=== PATIENT | male | born 1960 | race Asian ===

== ENCOUNTER 2024-07-11 16:14 | Inpatient (IN) | payer OTHER ==
[~2024-07-11] VITALS: Ht 167.6 cm; Wt 49.0 kg
[2024-07-11 16:36] LABS: GLUCOMETER DEV NAME(LOC) ERT.6; GLUCOSE,POINT OF CARE 113 MG/DL (70-110)
[2024-07-11] MEDS: SODIUM CHLORIDE 0.9% 800 ML IV ONE (17:05)
[2024-07-11] MEDS: SODIUM CHLORIDE 0.9% 1,000 ML IV ONE (17:05)
[2024-07-11] MEDS: ACETAMINOPHEN 1000 MG/ISO-OSM 100 ML IV ONE (17:06)
[2024-07-11] MEDS: PIPERACILLIN/TAZO 3.375 GM/D5W 50 ML IV ONE (17:07)
[2024-07-11] MEDS: VANCOMYCIN 1.25 GM/WATER(PEG) 250 ML IV ONE (17:07)
[2024-07-11 17:14] LABS: BASOPHILS % (AUTO) 0.2 % (0.0-2.0); EOSINOPHILS % (AUTO) 0 % (1.0-6.0); HEMOGLOBIN 8.2 g/dL (13.5-17.5); LYMPHOCYTES # (AUTO) 1.6 K/uL (1.0-4.8); LYMPHOCYTES % (AUTO) 8.7 % (22.0-44.0); MEAN CORPUSCULAR HEMOGLOBIN 16.3 pg (26.0-34.0); MEAN CORPUSCULAR HGB CONC 30.2 G/dL (31.0-37.0); MEAN CORPUSCULAR VOLUME 54 fL (80-100); MONOCYTES # (AUTO) 1.8 K/uL (0.1-1.0); MONOCYTES % (AUTO) 9.5 % (2.0-9.0); NEUTROPHILS # (AUTO) 15.5 K/uL (1.8-7.7); NEUTROPHILS % (AUTO) 81.6 % (40.0-70.0); PLATELET COUNT (AUTO) 615 K/uL (150-450); RED BLOOD CELL COUNT(AUTO) 5.02 MIL/uL (4.50-5.90); RED CELL DISTRIBUTION WIDTH 15.4 % (11.5-14.5); WHITE BLOOD COUNT (AUTO) 18.9 K/uL (4.5-11.0)
[2024-07-11 17:18] LABS: ANION GAP 13 mmol/L (8-16); CALCIUM, TOTAL 8.4 mg/dL (8.8-10.5); CARBON DIOXIDE 23 mmol/L (22-29); CHLORIDE 93 mmol/L (98-107); GLOMERULAR FILTR. RATE CALC > 60 mL/min (>60); GLUCOSE,RANDOM 103 mg/dL (70-110); SODIUM SERUM 129 mmol/L (136-145); UREA NITROGEN, BLOOD 23 mg/dL (7-18)
[2024-07-11 17:26] LABS: LACTIC ACID 1.5 mmol/L (0.4-2.0)
[2024-07-11 17:30] LABS: INR 1.2 (0.9-1.1); PROTHROMBIN TIME 12.1 SEC (9.4-11.6)
[2024-07-11 17:35] LABS: TROPONIN I-HIGH SENSITIVITY 4 ng/L (<76)
[2024-07-11 17:36] LABS: ALCOHOL, BLOOD (SERUM) < 3 mg/dL (0-10)
[2024-07-11 17:43] LABS: ALANINE AMINOTRANSFERASE 303 U/L (12-78); ALBUMIN 1.9 g/dL (3.4-5.0); ALKALINE PHOSPHATASE 296 U/L (46-116); ASPARTATE AMINOTRANSFERASE 315 U/L (15-37); BILIRUBIN,TOTAL 1.2 mg/dL (0.1-1.0); CREATINE KINASE, TOTAL ONLY 147 U/L (39-308); TOTAL PROTEIN, SERUM 9.1 g/dL (6.4-8.2)
[2024-07-11 17:43] LABS: COVID AG,FIA SOURCE NASAL SWAB
[2024-07-11 17:44] LABS: RBC MORPHOLOGY COMMENT ABNORMAL RBC MORPH
[2024-07-11 18:08] LABS: SARS-COV2 (COVID) ANTIGEN,FIA Negative (Negative)
[2024-07-11 18:12] LABS: INFLUENZA TYPE A NEGATIVE FOR TYPE A (NEGATIVE); INFLUENZA TYPE B NEGATIVE FOR TYPE B (NEGATIVE)
[2024-07-11 18:26] LABS: B-TYPE NATRIURETIC PEPTIDE 116 pg/mL (0-100)
[2024-07-11 19:34] LABS: TROPONIN I-HIGH SENSITIVITY Less Than 4 ng/L (<76)
[2024-07-11 19:45] LABS: APPEARANCE,URINE CLEAR (CLEAR); BILIRUBIN,URINE NEGATIVE (NEGATIVE); COLOR,URINE YELLOW (YELLOW); GLUCOSE, URINE (UA) NEGATIVE (NEGATIVE); KETONES,URINE NEGATIVE (NEGATIVE); LEUKOCYTE ESTERASE ,URINE NEGATIVE (NEGATIVE); NITRATE,URINE NEGATIVE (NEGATIVE); OCCULT BLOOD,URINE MODERATE (NEGATIVE); PH,URINE 5.5 (5.0-8.0); PH,URINE DRUG SCREEN 5.5 (5.0-8.0); PROTEIN,URINE TRACE mg/dL (NEGATIVE); SPECIFIC GRAVITIY, URINE 1.024 (1.003-1.030)
[2024-07-11 19:53] LABS: ALCOHOL, URINE DRUG SCREEN NEGATIVE (NEGATIVE); AMPHET/METH SCREEN,URINE NEGATIVE (NEGATIVE); BARBITURATE SCREEN, URINE NEGATIVE (NEGATIVE); BENZODIAZEPINES SCREEN,URINE NEGATIVE (NEGATIVE); CANNABINOID SCREEN,URINE NEGATIVE (NEGATIVE); COCAINE SCREEN,URINE NEGATIVE (NEGATIVE); METHADONE SCREEN, URINE NEGATIVE (NEGATIVE); OPIATE SCREEN,URINE NEGATIVE (NEGATIVE); PHENCYCLIDINE SCREEN,URINE NEGATIVE (NEGATIVE)
[2024-07-11 20:22] LABS: BACTERIA,URINE None Seen /HPF (None Seen); WBC,URINE None Seen /HPF (0-5)
[2024-07-11] MEDS ORDERED: BISACODYL 10 MG RECTAL RECTAL SUPPOSITORY PR PRN (22:30)
[2024-07-11] MEDS ORDERED: MAGNESIUM HYDROXIDE SUSPENSION 30 ML UDCUP PO PRN (22:30)
[2024-07-11] MEDS ORDERED: ZOLPIDEM TARTRATE 5 MG TABLET PO PRN (22:30)
[2024-07-11] MEDS ORDERED: ONDANSETRON HCL 4 MG/2 ML VIAL IVP PRN (22:30)
[2024-07-11] MEDS: *CLINICAL-LEVOFLOXACIN IVPB DOSING CLINICAL ONE (22:36)
[2024-07-12] MEDS: LEVOFLOXACIN 750 MG/D5% WATER 150 ML IV SCH (00:12)
[2024-07-12] MEDS: HEPARIN SODIUM,PORCINE 5,000 UNITS/ML VIAL SQ SCH (00:12)
[2024-07-12 02:45] VITALS: BP 124/86; PULSE 99; RESP 18; TEMP 98.3; O2SAT 95
[2024-07-12 04:00] VITALS: BP 123/70; PULSE 88; RESP 18; TEMP 101; O2SAT 97
[2024-07-12] MEDS: ACETAMINOPHEN 325 MG TABLET PO PRN (05:51)
[2024-07-12 06:55] LABS: ANION GAP 13 mmol/L (8-16); BASOPHILS % (AUTO) 0.2 % (0.0-2.0); CALCIUM, TOTAL 7.6 mg/dL (8.8-10.5); CARBON DIOXIDE 20 mmol/L (22-29); CHLORIDE 99 mmol/L (98-107); CREATININE 0.82 mg/dL (0.60-1.30); EOSINOPHILS % (AUTO) 0 % (1.0-6.0); GLOMERULAR FILTR. RATE CALC > 60 mL/min (>60); GLUCOSE,RANDOM 78 mg/dL (70-110); HEMATOCRIT 24.9 % (41-53); HEMOGLOBIN 7.3 g/dL (13.5-17.5); LYMPHOCYTES # (AUTO) 1.5 K/uL (1.0-4.8); LYMPHOCYTES % (AUTO) 8.3 % (22.0-44.0); MEAN CORPUSCULAR HEMOGLOBIN 15.9 pg (26.0-34.0); MEAN CORPUSCULAR HGB CONC 29.4 G/dL (31.0-37.0); MEAN CORPUSCULAR VOLUME 54 fL (80-100); MONOCYTES # (AUTO) 1.8 K/uL (0.1-1.0); MONOCYTES % (AUTO) 9.5 % (2.0-9.0); NEUTROPHILS # (AUTO) 15.2 K/uL (1.8-7.7); PLATELET COUNT (AUTO) 545 K/uL (150-450); POTASSIUM 3.9 mmol/L (3.5-5.1); RED BLOOD CELL COUNT(AUTO) 4.59 MIL/uL (4.50-5.90); SODIUM SERUM 132 mmol/L (136-145); UREA NITROGEN, BLOOD 15 mg/dL (7-18); WHITE BLOOD COUNT (AUTO) 18.5 K/uL (4.5-11.0)
[2024-07-12 08:00] VITALS: BP 124/77; PULSE 72; RESP 18; TEMP 97.7; O2SAT 99
[2024-07-12] MEDS: PANTOPRAZOLE SODIUM 40 MG DR TABLET PO SCH (08:23)
[2024-07-12] MEDS: DOCUSATE SODIUM 100 MG CAPSULE PO SCH (08:23)
[2024-07-12 12:00] VITALS: BP 118/61; PULSE 73; RESP 18; TEMP 97.3; O2SAT 98
[2024-07-12 16:00] VITALS: BP 141/79; PULSE 85; RESP 18; TEMP 100.2; O2SAT 98
[2024-07-12 21:17] VITALS: BP 137/72; PULSE 88; RESP 18; TEMP 98; O2SAT 96
[2024-07-12] MEDS ORDERED: SODIUM CHLORIDE 0.9% 250 ML IV ONE (23:38)
[2024-07-13 00:33] VITALS: BP 125/70; PULSE 90; RESP 18; TEMP 99.7; O2SAT 95
[2024-07-13 04:00] VITALS: BP 110/62; PULSE 84; RESP 18; TEMP 98.7; O2SAT 98
[2024-07-13 07:32] LABS: BASOPHILS % (AUTO) 0.2 % (0.0-2.0); EOSINOPHILS % (AUTO) 0 % (1.0-6.0); HEMATOCRIT 25.5 % (41-53); HEMOGLOBIN 7.7 g/dL (13.5-17.5); LYMPHOCYTES # (AUTO) 2.8 K/uL (1.0-4.8); LYMPHOCYTES % (AUTO) 13.3 % (22.0-44.0); MEAN CORPUSCULAR HEMOGLOBIN 16.2 pg (26.0-34.0); MEAN CORPUSCULAR HGB CONC 30.3 G/dL (31.0-37.0); MEAN CORPUSCULAR VOLUME 54 fL (80-100); MONOCYTES # (AUTO) 1.5 K/uL (0.1-1.0); NEUTROPHILS # (AUTO) 16.5 K/uL (1.8-7.7); NEUTROPHILS % (AUTO) 79.5 % (40.0-70.0); PLATELET COUNT (AUTO) 585 K/uL (150-450); RED BLOOD CELL COUNT(AUTO) 4.76 MIL/uL (4.50-5.90); RED CELL DISTRIBUTION WIDTH 15.8 % (11.5-14.5); WHITE BLOOD COUNT (AUTO) 20.8 K/uL (4.5-11.0)
[2024-07-13 07:43] LABS: ALANINE AMINOTRANSFERASE 154 U/L (12-78); ALBUMIN 1.4 g/dL (3.4-5.0); ALKALINE PHOSPHATASE 213 U/L (46-116); ANION GAP 14 mmol/L (8-16); ASPARTATE AMINOTRANSFERASE 104 U/L (15-37); BILIRUBIN,TOTAL 0.8 mg/dL (0.1-1.0); CALCIUM, TOTAL 7.9 mg/dL (8.8-10.5); CARBON DIOXIDE 20 mmol/L (22-29); CHLORIDE 95 mmol/L (98-107); CREATININE 0.84 mg/dL (0.60-1.30); GLOMERULAR FILTR. RATE CALC > 60 mL/min (>60); GLUCOSE,RANDOM 73 mg/dL (70-110); POTASSIUM 3.9 mmol/L (3.5-5.1); SODIUM SERUM 129 mmol/L (136-145); TOTAL PROTEIN, SERUM 7.6 g/dL (6.4-8.2); UREA NITROGEN, BLOOD 12 mg/dL (7-18)
[2024-07-13 07:53] LABS: RBC MORPHOLOGY COMMENT ABNORMAL RBC MORPH
[2024-07-13 08:00] VITALS: BP 112/64; PULSE 84; RESP 18; TEMP 97.8; O2SAT 97
[2024-07-13] MEDS ORDERED: GADOTERATE MEGLUMINE 10 MMOL/20 ML VIAL IVP ONE (11:24)
[2024-07-13 12:00] VITALS: BP 103/65; PULSE 81; RESP 17; TEMP 98.4; O2SAT 96
[2024-07-13 16:00] VITALS: BP 114/68; PULSE 84; RESP 18; TEMP 98.5; O2SAT 96
[2024-07-13] MEDS ORDERED: PIPERACILLIN/TAZO 3.375 GM/D5W 50 ML IV SCH (16:00)
[2024-07-13] MEDS: MetroNIDAZOLE 500 MG TABLET PO SCH (17:11)
[2024-07-13 21:12] VITALS: BP 108/62; PULSE 82; RESP 18; TEMP 99; O2SAT 97
[2024-07-14 00:30] VITALS: BP 126/73; PULSE 85; RESP 18; TEMP 98.1; O2SAT 95
[2024-07-14 05:46] VITALS: BP 119/72; PULSE 79; RESP 18; TEMP 98.2; O2SAT 95
[2024-07-14 07:40] LABS: BASOPHILS % (AUTO) 0.3 % (0.0-2.0); EOSINOPHILS % (AUTO) 0 % (1.0-6.0); HEMATOCRIT 25.2 % (41-53); HEMOGLOBIN 7.6 g/dL (13.5-17.5); LYMPHOCYTES # (AUTO) 2.7 K/uL (1.0-4.8); MEAN CORPUSCULAR HEMOGLOBIN 16.2 pg (26.0-34.0); MEAN CORPUSCULAR HGB CONC 30.2 G/dL (31.0-37.0); MEAN CORPUSCULAR VOLUME 54 fL (80-100); MONOCYTES # (AUTO) 1.6 K/uL (0.1-1.0); MONOCYTES % (AUTO) 7.6 % (2.0-9.0); NEUTROPHILS # (AUTO) 16.3 K/uL (1.8-7.7); NEUTROPHILS % (AUTO) 79.1 % (40.0-70.0); PLATELET COUNT (AUTO) 575 K/uL (150-450); RED BLOOD CELL COUNT(AUTO) 4.69 MIL/uL (4.50-5.90); RED CELL DISTRIBUTION WIDTH 15.8 % (11.5-14.5); WHITE BLOOD COUNT (AUTO) 20.6 K/uL (4.5-11.0)
[2024-07-14 08:07] VITALS: BP 105/65; PULSE 77; RESP 18; TEMP 98.7; O2SAT 94
[2024-07-14 08:07] LABS: ANION GAP 8 mmol/L (8-16); CARBON DIOXIDE 25 mmol/L (22-29); CHLORIDE 97 mmol/L (98-107); CREATININE 0.88 mg/dL (0.60-1.30); GLUCOSE,RANDOM 98 mg/dL (70-110); POTASSIUM 3.7 mmol/L (3.5-5.1); SODIUM SERUM 130 mmol/L (136-145); UREA NITROGEN, BLOOD 10 mg/dL (7-18)
[2024-07-14 08:08] LABS: CALCIUM, TOTAL 7.9 mg/dL (8.8-10.5); GLOMERULAR FILTR. RATE CALC > 60 mL/min (>60)
[2024-07-14 08:38] LABS: RBC MORPHOLOGY COMMENT ABNORMAL RBC MORPH
[2024-07-14 15:57] VITALS: BP 110/66; PULSE 81; RESP 20; TEMP 99.1; O2SAT 98
[2024-07-14 19:49] VITALS: BP 108/61; PULSE 82; RESP 20; TEMP 98.9; O2SAT 96
[2024-07-15 04:04] VITALS: BP 103/61; PULSE 78; RESP 19; TEMP 98.7; O2SAT 96
[2024-07-15 09:38] VITALS: BP 102/63; PULSE 74; RESP 20; TEMP 97.6; O2SAT 99
[2024-07-15 15:40] VITALS: BP 109/63; PULSE 80; RESP 18; TEMP 98.1; O2SAT 96
[2024-07-15 20:46] VITALS: BP 116/64; PULSE 82; RESP 17; TEMP 97.6; O2SAT 97
[2024-07-16 05:14] VITALS: BP 105/63; PULSE 74; RESP 17; TEMP 98.3; O2SAT 96
[2024-07-16 08:28] LABS: BASOPHILS % (AUTO) 0.3 % (0.0-2.0); EOSINOPHILS % (AUTO) 0.1 % (1.0-6.0); HEMATOCRIT 26.6 % (41-53); HEMOGLOBIN 7.9 g/dL (13.5-17.5); LYMPHOCYTES # (AUTO) 2.4 K/uL (1.0-4.8); LYMPHOCYTES % (AUTO) 12.1 % (22.0-44.0); MEAN CORPUSCULAR HGB CONC 29.7 G/dL (31.0-37.0); MEAN CORPUSCULAR VOLUME 54 fL (80-100); MONOCYTES # (AUTO) 1.7 K/uL (0.1-1.0); MONOCYTES % (AUTO) 8.5 % (2.0-9.0); NEUTROPHILS # (AUTO) 15.8 K/uL (1.8-7.7); PLATELET COUNT (AUTO) 615 K/uL (150-450); RED BLOOD CELL COUNT(AUTO) 4.97 MIL/uL (4.50-5.90); RED CELL DISTRIBUTION WIDTH 15.7 % (11.5-14.5)
[2024-07-16 08:44] VITALS: BP 111/63; PULSE 77; RESP 20; TEMP 98; O2SAT 97
[2024-07-16 08:54] LABS: ALANINE AMINOTRANSFERASE 88 U/L (12-78); ALBUMIN 1.5 g/dL (3.4-5.0); ALKALINE PHOSPHATASE 205 U/L (46-116); ANION GAP 9 mmol/L (8-16); ASPARTATE AMINOTRANSFERASE 57 U/L (15-37); BILIRUBIN,TOTAL 0.6 mg/dL (0.1-1.0); CALCIUM, TOTAL 8.3 mg/dL (8.8-10.5); CARBON DIOXIDE 26 mmol/L (22-29); CHLORIDE 95 mmol/L (98-107); CREATININE 0.99 mg/dL (0.60-1.30); GLOMERULAR FILTR. RATE CALC > 60 mL/min (>60); GLUCOSE,RANDOM 107 mg/dL (70-110); POTASSIUM 3.5 mmol/L (3.5-5.1); SODIUM SERUM 129 mmol/L (136-145); TOTAL PROTEIN, SERUM 8.2 g/dL (6.4-8.2); UREA NITROGEN, BLOOD 9 mg/dL (7-18)
[2024-07-16 11:00] LABS: RBC MORPHOLOGY COMMENT ABNORMAL RBC MORPH
[2024-07-16] MEDS ORDERED: LIDOCAINE/PF 1% 30 ML VIAL ONE (11:58)
[2024-07-16] MEDS ORDERED: SODIUM BICARBONATE 50 MEQ/50 ML VIAL ONE (11:58)
[2024-07-16] MEDS ORDERED: DiphenhydrAMINE HCL 50 MG/ML VIAL ONE (12:00)
[2024-07-16 12:07] VITALS: BP 135/74; PULSE 81
[2024-07-16] MEDS: DiphenhydrAMINE HCL 50 MG/ML VIAL IVP ONE (12:17)
[2024-07-16 12:27] VITALS: BP 122/73; PULSE 81
[2024-07-16] MEDS: LIDOCAINE 1% 30 ML/SOD BICARB 8.4% 4 ML SQ ONE (12:34)
[2024-07-16] MEDS: MORPHINE SULFATE 2 MG/ML SYRINGE IVP PRN (13:50)
[2024-07-16 16:07] VITALS: BP 117/71; PULSE 84; RESP 20; TEMP 98.6; O2SAT 98
[2024-07-16 19:27] VITALS: BP 121/77; PULSE 100; RESP 19; TEMP 98.6; O2SAT 98
[2024-07-17 05:10] VITALS: BP 104/70; PULSE 85; RESP 18; TEMP 98.4; O2SAT 95
[2024-07-17 07:25] LABS: BASOPHILS % (AUTO) 0.1 % (0.0-2.0); EOSINOPHILS % (AUTO) 0 % (1.0-6.0); HEMATOCRIT 25.4 % (41-53); HEMOGLOBIN 7.6 g/dL (13.5-17.5); LYMPHOCYTES # (AUTO) 2.5 K/uL (1.0-4.8); LYMPHOCYTES % (AUTO) 11.5 % (22.0-44.0); MEAN CORPUSCULAR HGB CONC 29.9 G/dL (31.0-37.0); MEAN CORPUSCULAR VOLUME 54 fL (80-100); MONOCYTES # (AUTO) 0.5 K/uL (0.1-1.0); MONOCYTES % (AUTO) 2.4 % (2.0-9.0); NEUTROPHILS # (AUTO) 18.6 K/uL (1.8-7.7); PLATELET COUNT (AUTO) 516 K/uL (150-450); RED BLOOD CELL COUNT(AUTO) 4.74 MIL/uL (4.50-5.90); RED CELL DISTRIBUTION WIDTH 15.8 % (11.5-14.5); WHITE BLOOD COUNT (AUTO) 21.7 K/uL (4.5-11.0)
[2024-07-17 07:39] LABS: RBC MORPHOLOGY COMMENT ABNORMAL RBC MORPH
[2024-07-17 08:00] VITALS: BP 107/68; PULSE 81; RESP 19; TEMP 98.7; O2SAT 96
[2024-07-17] MEDS: HYDROCODONE/ACETAMINOPHEN 5-325 MG TABLET PO PRN (08:28)
[2024-07-17 16:51] VITALS: BP 106/70; PULSE 88; RESP 18; TEMP 98; O2SAT 96
[2024-07-17 19:34] VITALS: BP 108/67; PULSE 92; RESP 18; TEMP 98.7; O2SAT 96
[2024-07-18 03:53] VITALS: BP 102/65; PULSE 87; RESP 19; TEMP 98.5; O2SAT 95
[2024-07-18 07:46] LABS: BASOPHILS % (AUTO) 0.2 % (0.0-2.0); EOSINOPHILS % (AUTO) 0.1 % (1.0-6.0); HEMATOCRIT 25.1 % (41-53); HEMOGLOBIN 7.4 g/dL (13.5-17.5); LYMPHOCYTES # (AUTO) 2.4 K/uL (1.0-4.8); LYMPHOCYTES % (AUTO) 11.3 % (22.0-44.0); MEAN CORPUSCULAR HEMOGLOBIN 15.8 pg (26.0-34.0); MEAN CORPUSCULAR HGB CONC 29.5 G/dL (31.0-37.0); MEAN CORPUSCULAR VOLUME 54 fL (80-100); MONOCYTES % (AUTO) 4.7 % (2.0-9.0); NEUTROPHILS # (AUTO) 17.7 K/uL (1.8-7.7); NEUTROPHILS % (AUTO) 83.7 % (40.0-70.0); PLATELET COUNT (AUTO) 502 K/uL (150-450); RED BLOOD CELL COUNT(AUTO) 4.69 MIL/uL (4.50-5.90); WHITE BLOOD COUNT (AUTO) 21.1 K/uL (4.5-11.0)
[2024-07-18 08:07] VITALS: BP 102/69; PULSE 63; RESP 18; TEMP 98.2; O2SAT 96
[2024-07-18 15:35] VITALS: BP 117/69; PULSE 88; RESP 18; TEMP 99.2; O2SAT 94
[2024-07-18 19:21] VITALS: BP 114/84; PULSE 74; RESP 20; TEMP 99.4; O2SAT 97
[2024-07-19 04:46] VITALS: BP 116/74; PULSE 71; RESP 18; TEMP 97.7; O2SAT 99
[2024-07-19 08:17] VITALS: BP 111/68; PULSE 70; RESP 19; TEMP 97.8; O2SAT 96
[2024-07-19 08:25] LABS: BASOPHILS % (AUTO) 0.3 % (0.0-2.0); EOSINOPHILS % (AUTO) 0.3 % (1.0-6.0); HEMOGLOBIN 8.4 g/dL (13.5-17.5); LYMPHOCYTES # (AUTO) 2.3 K/uL (1.0-4.8); LYMPHOCYTES % (AUTO) 11.5 % (22.0-44.0); MEAN CORPUSCULAR HEMOGLOBIN 16.1 pg (26.0-34.0); MEAN CORPUSCULAR HGB CONC 29.9 G/dL (31.0-37.0); MEAN CORPUSCULAR VOLUME 54 fL (80-100); MONOCYTES # (AUTO) 1.1 K/uL (0.1-1.0); MONOCYTES % (AUTO) 5.8 % (2.0-9.0); NEUTROPHILS % (AUTO) 82.1 % (40.0-70.0); PLATELET COUNT (AUTO) 569 K/uL (150-450); RED CELL DISTRIBUTION WIDTH 16.8 % (11.5-14.5); WHITE BLOOD COUNT (AUTO) 19.5 K/uL (4.5-11.0)
[2024-07-19 15:57] VITALS: BP 103/65; PULSE 79; RESP 20; TEMP 98; O2SAT 98
[2024-07-19 20:06] VITALS: BP 124/73; PULSE 85; RESP 20; TEMP 98.3; O2SAT 94
[2024-07-20 04:46] VITALS: BP 118/76; PULSE 82; RESP 20; TEMP 98; O2SAT 95
[2024-07-20 09:00] VITALS: BP 114/74; PULSE 80; RESP 19; TEMP 97.8; O2SAT 95
[2024-07-20 10:24] LABS: BASOPHILS % (AUTO) 0.6 % (0.0-2.0); EOSINOPHILS % (AUTO) 0.3 % (1.0-6.0); HEMATOCRIT 29.2 % (41-53); HEMOGLOBIN 8.8 g/dL (13.5-17.5); LYMPHOCYTES # (AUTO) 2.4 K/uL (1.0-4.8); LYMPHOCYTES % (AUTO) 12.1 % (22.0-44.0); MEAN CORPUSCULAR VOLUME 54 fL (80-100); MONOCYTES # (AUTO) 1.4 K/uL (0.1-1.0); MONOCYTES % (AUTO) 7.1 % (2.0-9.0); NEUTROPHILS % (AUTO) 79.9 % (40.0-70.0); PLATELET COUNT (AUTO) 665 K/uL (150-450); RED BLOOD CELL COUNT(AUTO) 5.47 MIL/uL (4.50-5.90); RED CELL DISTRIBUTION WIDTH 16.4 % (11.5-14.5)
[2024-07-20 10:30] LABS: RBC MORPHOLOGY COMMENT ABNORMAL RBC MORPH
[2024-07-20 10:40] LABS: ALANINE AMINOTRANSFERASE 30 U/L (12-78); ALBUMIN 1.5 g/dL (3.4-5.0); ALKALINE PHOSPHATASE 136 U/L (46-116); ANION GAP 8 mmol/L (8-16); ASPARTATE AMINOTRANSFERASE 42 U/L (15-37); BILIRUBIN,TOTAL 0.5 mg/dL (0.1-1.0); CALCIUM, TOTAL 8.3 mg/dL (8.8-10.5); CARBON DIOXIDE 27 mmol/L (22-29); CHLORIDE 93 mmol/L (98-107); CREATININE 0.78 mg/dL (0.60-1.30); GLOMERULAR FILTR. RATE CALC > 60 mL/min (>60); GLUCOSE,RANDOM 96 mg/dL (70-110); POTASSIUM 4.2 mmol/L (3.5-5.1); SODIUM SERUM 128 mmol/L (136-145); UREA NITROGEN, BLOOD 13 mg/dL (7-18)
[2024-07-20 14:51] VITALS: BP 107/77; PULSE 86; RESP 18; TEMP 97.7; O2SAT 96
[2024-07-20 19:25] VITALS: BP 127/89; PULSE 84; RESP 18; TEMP 97.8; O2SAT 97
[2024-07-21 03:17] VITALS: BP 122/77; PULSE 82; RESP 18; TEMP 97.8; O2SAT 97
[2024-07-21 07:49] LABS: BASOPHILS % (AUTO) 1.4 % (0.0-2.0); EOSINOPHILS % (AUTO) 0.3 % (1.0-6.0); HEMATOCRIT 28.7 % (41-53); HEMOGLOBIN 8.6 g/dL (13.5-17.5); LYMPHOCYTES # (AUTO) 2.5 K/uL (1.0-4.8); LYMPHOCYTES % (AUTO) 11.2 % (22.0-44.0); MEAN CORPUSCULAR HGB CONC 29.8 G/dL (31.0-37.0); MEAN CORPUSCULAR VOLUME 54 fL (80-100); MONOCYTES # (AUTO) 1.3 K/uL (0.1-1.0); MONOCYTES % (AUTO) 5.8 % (2.0-9.0); NEUTROPHILS # (AUTO) 17.9 K/uL (1.8-7.7); NEUTROPHILS % (AUTO) 81.3 % (40.0-70.0); PLATELET COUNT (AUTO) 659 K/uL (150-450); RED BLOOD CELL COUNT(AUTO) 5.37 MIL/uL (4.50-5.90); RED CELL DISTRIBUTION WIDTH 16.6 % (11.5-14.5)
[2024-07-21 08:05] LABS: ANION GAP 8 mmol/L (8-16); CALCIUM, TOTAL 8.4 mg/dL (8.8-10.5); CARBON DIOXIDE 28 mmol/L (22-29); CHLORIDE 93 mmol/L (98-107); CREATININE 0.88 mg/dL (0.60-1.30); GLOMERULAR FILTR. RATE CALC > 60 mL/min (>60); GLUCOSE,RANDOM 100 mg/dL (70-110); POTASSIUM 4.2 mmol/L (3.5-5.1); SODIUM SERUM 129 mmol/L (136-145); UREA NITROGEN, BLOOD 15 mg/dL (7-18)
[2024-07-21 08:39] LABS: RBC MORPHOLOGY COMMENT ABNORMAL RBC MORPH
[2024-07-21 09:23] VITALS: BP 126/79; PULSE 84; RESP 18; TEMP 97.5; O2SAT 97
[2024-07-21 15:09] VITALS: BP 114/78; PULSE 90; RESP 18; TEMP 97.7; O2SAT 97
[2024-07-21 19:18] VITALS: BP 139/87; PULSE 86; RESP 18; TEMP 97.7; O2SAT 96
[2024-07-21 19:22] VITALS: BP 119/61; PULSE 64; RESP 18; TEMP 98.4; O2SAT 96
[2024-07-22 03:59] VITALS: BP 111/67; PULSE 80; RESP 18; TEMP 98.2; O2SAT 96
[2024-07-22 07:09] LABS: BASOPHILS % (AUTO) 0.2 % (0.0-2.0); EOSINOPHILS % (AUTO) 0.4 % (1.0-6.0); HEMATOCRIT 27.8 % (41-53); HEMOGLOBIN 8.3 g/dL (13.5-17.5); LYMPHOCYTES # (AUTO) 2.5 K/uL (1.0-4.8); MEAN CORPUSCULAR VOLUME 53 fL (80-100); MONOCYTES # (AUTO) 1.6 K/uL (0.1-1.0); MONOCYTES % (AUTO) 7.8 % (2.0-9.0); NEUTROPHILS # (AUTO) 16.4 K/uL (1.8-7.7); NEUTROPHILS % (AUTO) 79.6 % (40.0-70.0); PLATELET COUNT (AUTO) 628 K/uL (150-450); RED CELL DISTRIBUTION WIDTH 16.6 % (11.5-14.5); WHITE BLOOD COUNT (AUTO) 20.6 K/uL (4.5-11.0)
[2024-07-22 07:16] LABS: ANION GAP 6 mmol/L (8-16); CALCIUM, TOTAL 8.3 mg/dL (8.8-10.5); CARBON DIOXIDE 27 mmol/L (22-29); CHLORIDE 97 mmol/L (98-107); CREATININE 0.85 mg/dL (0.60-1.30); GLOMERULAR FILTR. RATE CALC > 60 mL/min (>60); GLUCOSE,RANDOM 95 mg/dL (70-110); POTASSIUM 4.5 mmol/L (3.5-5.1); SODIUM SERUM 130 mmol/L (136-145); UREA NITROGEN, BLOOD 16 mg/dL (7-18)
[2024-07-22 08:31] VITALS: BP 118/67; PULSE 82; RESP 19; TEMP 97.8; O2SAT 96
[2024-07-22 08:38] LABS: RBC MORPHOLOGY COMMENT ABNORMAL RBC MORPH
[2024-07-22 16:05] VITALS: BP 130/79; PULSE 97; RESP 18; TEMP 97.7; O2SAT 96
[2024-07-22 19:48] VITALS: BP 113/71; PULSE 87; RESP 18; TEMP 98.2; O2SAT 96
[2024-07-23 04:57] VITALS: BP 117/74; PULSE 81; RESP 18; TEMP 98.3; O2SAT 96
[2024-07-23 06:32] LABS: BASOPHILS % (AUTO) 0.5 % (0.0-2.0); EOSINOPHILS % (AUTO) 0.4 % (1.0-6.0); HEMATOCRIT 27.7 % (41-53); HEMOGLOBIN 8.3 g/dL (13.5-17.5); LYMPHOCYTES # (AUTO) 2.6 K/uL (1.0-4.8); LYMPHOCYTES % (AUTO) 12.9 % (22.0-44.0); MEAN CORPUSCULAR HEMOGLOBIN 16.1 pg (26.0-34.0); MEAN CORPUSCULAR VOLUME 54 fL (80-100); MONOCYTES # (AUTO) 1.3 K/uL (0.1-1.0); MONOCYTES % (AUTO) 6.3 % (2.0-9.0); NEUTROPHILS # (AUTO) 16.4 K/uL (1.8-7.7); NEUTROPHILS % (AUTO) 79.9 % (40.0-70.0); PLATELET COUNT (AUTO) 619 K/uL (150-450); RED BLOOD CELL COUNT(AUTO) 5.15 MIL/uL (4.50-5.90); RED CELL DISTRIBUTION WIDTH 17.1 % (11.5-14.5); WHITE BLOOD COUNT (AUTO) 20.5 K/uL (4.5-11.0)
[2024-07-23 06:52] LABS: ANION GAP 6 mmol/L (8-16); CALCIUM, TOTAL 8.3 mg/dL (8.8-10.5); CARBON DIOXIDE 28 mmol/L (22-29); CHLORIDE 96 mmol/L (98-107); CREATININE 0.74 mg/dL (0.60-1.30); GLOMERULAR FILTR. RATE CALC > 60 mL/min (>60); GLUCOSE,RANDOM 90 mg/dL (70-110); POTASSIUM 4.3 mmol/L (3.5-5.1); SODIUM SERUM 130 mmol/L (136-145); UREA NITROGEN, BLOOD 13 mg/dL (7-18)
[2024-07-23 08:13] VITALS: BP 112/77; PULSE 84; RESP 18; TEMP 97.9; O2SAT 95
[2024-07-23 08:29] LABS: RBC MORPHOLOGY COMMENT ABNORMAL RBC MORPH
[2024-07-23 16:10] VITALS: BP 122/68; PULSE 78; RESP 18; TEMP 98; O2SAT 96
[2024-07-23] MEDS: AMPICILLIN SODIUM/SULBACTAM NA 3 GM in SODIUM CHLORIDE 0.9% 100 ML IV SCH (16:23)
[2024-07-23 19:15] VITALS: BP 113/65; PULSE 85; RESP 18; TEMP 98.4; O2SAT 96
[2024-07-24 04:31] VITALS: BP 121/74; PULSE 77; RESP 18; TEMP 98.1; O2SAT 97
[2024-07-24 07:15] LABS: BASOPHILS % (AUTO) 0.4 % (0.0-2.0); EOSINOPHILS % (AUTO) 0.4 % (1.0-6.0); HEMATOCRIT 28.9 % (41-53); HEMOGLOBIN 8.7 g/dL (13.5-17.5); LYMPHOCYTES # (AUTO) 3.3 K/uL (1.0-4.8); LYMPHOCYTES % (AUTO) 19.3 % (22.0-44.0); MEAN CORPUSCULAR HEMOGLOBIN 16.2 pg (26.0-34.0); MEAN CORPUSCULAR VOLUME 54 fL (80-100); MONOCYTES # (AUTO) 1.2 K/uL (0.1-1.0); MONOCYTES % (AUTO) 7.1 % (2.0-9.0); NEUTROPHILS # (AUTO) 12.3 K/uL (1.8-7.7); NEUTROPHILS % (AUTO) 72.8 % (40.0-70.0); PLATELET COUNT (AUTO) 681 K/uL (150-450); RED BLOOD CELL COUNT(AUTO) 5.36 MIL/uL (4.50-5.90); RED CELL DISTRIBUTION WIDTH 17.1 % (11.5-14.5); WHITE BLOOD COUNT (AUTO) 16.9 K/uL (4.5-11.0)
[2024-07-24 07:28] LABS: RBC MORPHOLOGY COMMENT ABNORMAL RBC MORPH
[2024-07-24 08:06] VITALS: BP 117/70; PULSE 79; RESP 20; TEMP 97.9; O2SAT 97
[2024-07-24 16:18] VITALS: BP 117/68; PULSE 83; RESP 18; TEMP 97.7; O2SAT 96
[2024-07-24 20:00] VITALS: BP 127/78; PULSE 78; RESP 18; TEMP 98.4; O2SAT 100
[2024-07-25 05:17] VITALS: BP 140/85; PULSE 72; RESP 18; TEMP 98; O2SAT 98
[2024-07-25 07:47] LABS: BASOPHILS % (AUTO) 0.8 % (0.0-2.0); EOSINOPHILS % (AUTO) 0.7 % (1.0-6.0); HEMATOCRIT 28.8 % (41-53); HEMOGLOBIN 8.6 g/dL (13.5-17.5); LYMPHOCYTES # (AUTO) 5.3 K/uL (1.0-4.8); LYMPHOCYTES % (AUTO) 39.4 % (22.0-44.0); MEAN CORPUSCULAR HEMOGLOBIN 16.2 pg (26.0-34.0); MEAN CORPUSCULAR HGB CONC 29.9 G/dL (31.0-37.0); MEAN CORPUSCULAR VOLUME 54 fL (80-100); MONOCYTES # (AUTO) 0.8 K/uL (0.1-1.0); MONOCYTES % (AUTO) 6.2 % (2.0-9.0); NEUTROPHILS # (AUTO) 7.1 K/uL (1.8-7.7); NEUTROPHILS % (AUTO) 52.9 % (40.0-70.0); PLATELET COUNT (AUTO) 655 K/uL (150-450); RED BLOOD CELL COUNT(AUTO) 5.32 MIL/uL (4.50-5.90); RED CELL DISTRIBUTION WIDTH 17.5 % (11.5-14.5); WHITE BLOOD COUNT (AUTO) 13.4 K/uL (4.5-11.0)
[2024-07-25 07:52] VITALS: BP 126/76; PULSE 77; RESP 18; TEMP 98.1; O2SAT 97
[2024-07-25 15:42] VITALS: BP 139/77; PULSE 96; RESP 18; TEMP 98.2; O2SAT 95
[2024-07-25 20:43] VITALS: BP 121/75; PULSE 94; RESP 16; TEMP 98.4; O2SAT 96
[2024-07-26 05:53] VITALS: BP 122/75; PULSE 83; RESP 18; O2SAT 98
[2024-07-26 08:30] VITALS: BP 130/77; PULSE 84; RESP 16; TEMP 97.1; O2SAT 97
[2024-07-26 08:36] LABS: HEMATOCRIT 28.9 % (41-53); HEMOGLOBIN 8.7 g/dL (13.5-17.5); MEAN CORPUSCULAR HEMOGLOBIN 16.3 pg (26.0-34.0); MEAN CORPUSCULAR HGB CONC 30.2 G/dL (31.0-37.0); MEAN CORPUSCULAR VOLUME 54 fL (80-100); PLATELET COUNT (AUTO) 662 K/uL (150-450); RED BLOOD CELL COUNT(AUTO) 5.35 MIL/uL (4.50-5.90); RED CELL DISTRIBUTION WIDTH 17.6 % (11.5-14.5); WHITE BLOOD COUNT (AUTO) 14.5 K/uL (4.5-11.0)
[2024-07-26 08:55] LABS: BAND NEUTROPHILS % (MANUAL) 3 % (0-5); BASOPHILS % (MANUAL) 4 % (0-2); EOSINOPHILS % (MANUAL) 1 % (1-6); LYMPHOCYTES % (MANUAL) 17 % (22-44); METAMYELOCYTES % 1 % (0-0); MONOCYTES % (MANUAL) 5 % (2-9); REACTIVE LYMPHOCYTES 1 % (0-0); SEGMENTED NEUTROPHILS % 68 % (40-70); TOTAL CELLS COUNTED 100
[2024-07-26 08:58] LABS: RBC MORPHOLOGY COMMENT ABNORMAL RBC MORPH
[2024-07-26 09:00] LABS: ALANINE AMINOTRANSFERASE 35 U/L (12-78); ALBUMIN 1.9 g/dL (3.4-5.0); ALKALINE PHOSPHATASE 105 U/L (46-116); ANION GAP 5 mmol/L (8-16); ASPARTATE AMINOTRANSFERASE 64 U/L (15-37); BILIRUBIN,TOTAL 0.3 mg/dL (0.1-1.0); CALCIUM, TOTAL 8.7 mg/dL (8.8-10.5); CARBON DIOXIDE 30 mmol/L (22-29); CHLORIDE 98 mmol/L (98-107); CREATININE 0.81 mg/dL (0.60-1.30); GLOMERULAR FILTR. RATE CALC > 60 mL/min (>60); GLUCOSE,RANDOM 85 mg/dL (70-110); POTASSIUM 4.2 mmol/L (3.5-5.1); SODIUM SERUM 133 mmol/L (136-145); TOTAL PROTEIN, SERUM 8.4 g/dL (6.4-8.2); UREA NITROGEN, BLOOD 16 mg/dL (7-18)
[2024-07-26 19:16] VITALS: BP 117/79; PULSE 90; RESP 18; TEMP 98.2; O2SAT 94
[2024-07-27 04:29] VITALS: BP 114/77; PULSE 87; RESP 20; TEMP 98.1; O2SAT 99
[2024-07-27 07:44] LABS: HEMATOCRIT 27.3 % (41-53); HEMOGLOBIN 8.1 g/dL (13.5-17.5); MEAN CORPUSCULAR HEMOGLOBIN 16.2 pg (26.0-34.0); MEAN CORPUSCULAR HGB CONC 29.8 G/dL (31.0-37.0); MEAN CORPUSCULAR VOLUME 55 fL (80-100); PLATELET COUNT (AUTO) 603 K/uL (150-450); RED CELL DISTRIBUTION WIDTH 18.9 % (11.5-14.5); WHITE BLOOD COUNT (AUTO) 11.8 K/uL (4.5-11.0)
[2024-07-27 07:54] LABS: BAND NEUTROPHILS % (MANUAL) 2 % (0-5); BASOPHILS % (MANUAL) 1 % (0-2); EOSINOPHILS % (MANUAL) 1 % (1-6); LYMPHOCYTES % (MANUAL) 16 % (22-44); MONOCYTES % (MANUAL) 7 % (2-9); RBC MORPHOLOGY COMMENT ABNORMAL R; REACTIVE LYMPHOCYTES 1 % (0-0); SEGMENTED NEUTROPHILS % 72 % (40-70); TOTAL CELLS COUNTED 100
[2024-07-27 08:06] LABS: ANION GAP 6 mmol/L (8-16); CALCIUM, TOTAL 8.5 mg/dL (8.8-10.5); CARBON DIOXIDE 29 mmol/L (22-29); CHLORIDE 98 mmol/L (98-107); GLOMERULAR FILTR. RATE CALC > 60 mL/min (>60); GLUCOSE,RANDOM 91 mg/dL (70-110); POTASSIUM 4.5 mmol/L (3.5-5.1); SODIUM SERUM 133 mmol/L (136-145); UREA NITROGEN, BLOOD 16 mg/dL (7-18)
[2024-07-27 08:07] VITALS: BP 112/73; PULSE 83; RESP 20; TEMP 98.2; O2SAT 96
[2024-07-27 14:25] VITALS: BP 111/72; PULSE 92; RESP 20; TEMP 98.3; O2SAT 99
[2024-07-27 20:00] VITALS: BP 115/73; PULSE 91; RESP 18; TEMP 98.1; O2SAT 94
[2024-07-28 03:59] VITALS: BP 116/71; PULSE 97; RESP 18; TEMP 98; O2SAT 98
[2024-07-28 08:18] VITALS: BP 110/77; PULSE 82; RESP 19; TEMP 98.2; O2SAT 98
[2024-07-28 16:23] VITALS: BP 122/76; PULSE 83; RESP 19; TEMP 98.3; O2SAT 96
[2024-07-28 20:00] VITALS: BP 108/65; PULSE 86; RESP 20; TEMP 98.2; O2SAT 95
[2024-07-29 04:33] VITALS: BP 126/76; PULSE 79; RESP 20; TEMP 98.3; O2SAT 95
[2024-07-29 06:46] LABS: HEMATOCRIT 29.1 % (41-53); HEMOGLOBIN 8.8 g/dL (13.5-17.5); MEAN CORPUSCULAR HEMOGLOBIN 16.7 pg (26.0-34.0); MEAN CORPUSCULAR HGB CONC 30.4 G/dL (31.0-37.0); MEAN CORPUSCULAR VOLUME 55 fL (80-100); PLATELET COUNT (AUTO) 600 K/uL (150-450); RED BLOOD CELL COUNT(AUTO) 5.29 MIL/uL (4.50-5.90); RED CELL DISTRIBUTION WIDTH 19.8 % (11.5-14.5); WHITE BLOOD COUNT (AUTO) 10.8 K/uL (4.5-11.0)
[2024-07-29 06:54] LABS: BAND NEUTROPHILS % (MANUAL) 0 % (0-5)
[2024-07-29 07:08] LABS: ALANINE AMINOTRANSFERASE 112 U/L (12-78); ALBUMIN 2.2 g/dL (3.4-5.0); ALKALINE PHOSPHATASE 125 U/L (46-116); ANION GAP 9 mmol/L (8-16); ASPARTATE AMINOTRANSFERASE 147 U/L (15-37); BILIRUBIN,TOTAL 0.4 mg/dL (0.1-1.0); CALCIUM, TOTAL 8.9 mg/dL (8.8-10.5); CARBON DIOXIDE 30 mmol/L (22-29); CHLORIDE 97 mmol/L (98-107); CREATININE 0.87 mg/dL (0.60-1.30); GLOMERULAR FILTR. RATE CALC > 60 mL/min (>60); GLUCOSE,RANDOM 90 mg/dL (70-110); POTASSIUM 4.3 mmol/L (3.5-5.1); SODIUM SERUM 136 mmol/L (136-145); TOTAL PROTEIN, SERUM 8.6 g/dL (6.4-8.2); UREA NITROGEN, BLOOD 15 mg/dL (7-18)
[2024-07-29 08:00] VITALS: BP 105/68; PULSE 90; RESP 20; TEMP 98.4; O2SAT 99
[2024-07-29 08:49] LABS: LYMPHOCYTES % (MANUAL) 37 % (22-44); MONOCYTES % (MANUAL) 2 % (2-9); SEGMENTED NEUTROPHILS % 61 % (40-70); TOTAL CELLS COUNTED 100
[2024-07-29 08:50] LABS: RBC MORPHOLOGY COMMENT ABNORMAL RBC MORPH
[2024-07-29 19:35] VITALS: BP 119/75; PULSE 96; RESP 19; TEMP 98.2; O2SAT 97
[2024-07-30 04:07] VITALS: BP 104/68; PULSE 83; RESP 18; TEMP 98; O2SAT 96
[2024-07-30] MEDS ORDERED: FentaNYL CITRATE PF 100 MCG/2 ML VIAL ONE (07:30)
[2024-07-30] MEDS ORDERED: MIDAZOLAM HCL 2 MG/2 ML VIAL ONE (07:31)
[2024-07-30] MEDS ORDERED: IOHEXOL 300 MG/ML 50 ML VIAL ONE (07:31)
[2024-07-30] MEDS ORDERED: LIDOCAINE/PF 1% 30 ML VIAL ONE (07:32)
[2024-07-30 07:59] VITALS: BP 121/71; PULSE 81; RESP 20; TEMP 98.4; O2SAT 98
[2024-07-30 08:23] LABS: ALANINE AMINOTRANSFERASE 127 U/L (12-78); ALBUMIN 2.3 g/dL (3.4-5.0); ALKALINE PHOSPHATASE 113 U/L (46-116); ANION GAP 10 mmol/L (8-16); ASPARTATE AMINOTRANSFERASE 135 U/L (15-37); BILIRUBIN,TOTAL 0.3 mg/dL (0.1-1.0); CALCIUM, TOTAL 8.6 mg/dL (8.8-10.5); CARBON DIOXIDE 27 mmol/L (22-29); CHLORIDE 99 mmol/L (98-107); CREATININE 0.78 mg/dL (0.60-1.30); GLOMERULAR FILTR. RATE CALC > 60 mL/min (>60); GLUCOSE,RANDOM 94 mg/dL (70-110); POTASSIUM 4.5 mmol/L (3.5-5.1); SODIUM SERUM 136 mmol/L (136-145); TOTAL PROTEIN, SERUM 8.3 g/dL (6.4-8.2); UREA NITROGEN, BLOOD 17 mg/dL (7-18)
[2024-07-30] MEDS: ALTEPLASE 2 MG VIAL/STERILE WATER IVCATH ONE (08:45)
[2024-07-30] MEDS: IOHEXOL 300 MG/ML 50 ML VIAL IVP ONE (08:54)
[2024-07-30] MEDS: LIDOCAINE 1% 30 ML/SOD BICARB 8.4% 4 ML SQ ONE (08:55)
[2024-07-30] MEDS: FentaNYL CITRATE PF 100 MCG/2 ML VIAL IVP ONE (08:56)
[2024-07-30] MEDS: MIDAZOLAM HCL 2 MG/2 ML VIAL IVP ONE (08:56)
[2024-07-30] MEDS: SODIUM CHLORIDE 0.9% 500 ML IV ONE (08:57)
[2024-07-30 09:36] VITALS: BP 119/77; PULSE 78; RESP 17; TEMP 98.2; O2SAT 98
[2024-07-30] MEDS ORDERED: SODIUM CHLORIDE 0.9% 250 ML IV ONE (11:08)
[2024-07-30 15:59] VITALS: BP 111/60; PULSE 87; RESP 20; TEMP 98.2; O2SAT 99
[2024-07-30 19:26] VITALS: BP 110/69; PULSE 93; RESP 18; TEMP 98.6; O2SAT 97
[2024-07-31 05:22] VITALS: BP 102/70; PULSE 86; RESP 18; TEMP 98.1; O2SAT 98
[2024-07-31 08:22] VITALS: BP 103/69; PULSE 87; RESP 18; TEMP 98.1; O2SAT 98
[2024-07-31 09:18] LABS: ALANINE AMINOTRANSFERASE 146 U/L (12-78); ALBUMIN 2.2 g/dL (3.4-5.0); ALKALINE PHOSPHATASE 127 U/L (46-116); ANION GAP 11 mmol/L (8-16); ASPARTATE AMINOTRANSFERASE 145 U/L (15-37); BILIRUBIN,TOTAL 0.3 mg/dL (0.1-1.0); CALCIUM, TOTAL 8.4 mg/dL (8.8-10.5); CARBON DIOXIDE 28 mmol/L (22-29); CHLORIDE 98 mmol/L (98-107); CREATININE 0.92 mg/dL (0.60-1.30); GLOMERULAR FILTR. RATE CALC > 60 mL/min (>60); GLUCOSE,RANDOM 102 mg/dL (70-110); POTASSIUM 4.4 mmol/L (3.5-5.1); SODIUM SERUM 136 mmol/L (136-145); TOTAL PROTEIN, SERUM 8.2 g/dL (6.4-8.2); UREA NITROGEN, BLOOD 17 mg/dL (7-18)
[2024-07-31] MEDS ORDERED: LEVO750T68 PO (13:12)
[2024-07-31] MEDS ORDERED: AMOX-457 PO (13:12)
[2024-07-31 17:14] VITALS: BP 116/67; PULSE 98; RESP 18; TEMP 98.1; O2SAT 97
[2024-07-31 20:51] VITALS: BP 113/69; PULSE 91; RESP 20; TEMP 98.8; O2SAT 97
[2024-08-01 04:34] VITALS: BP 123/72; PULSE 89; RESP 18; TEMP 98.2; O2SAT 96
[2024-08-01 07:55] VITALS: BP 130/77; PULSE 85; RESP 18; TEMP 98.1; O2SAT 99
[2024-08-01] MEDS: PNEUMOCOCCAL VACCINE POLYVALENT 0.5 ML SYRINGE [PPSV23] IM. ONE (10:53)
[2024-08-01 15:15] VITALS: BP 115/71; PULSE 91; RESP 18; TEMP 98.4; O2SAT 97
[2024-08-04 07:07] LABS: OVA AND PARASITES EXAM Final report
== END 2024-08-01 18:10 | disposition home health service (06) | DRG 720 ==
LOC: EMS 16:22 → EDH 22:31 → 5S 07-12 02:45 → 4E 07-14 00:06
PROVIDERS: ADMIT Internal Medicine; ATTEND Internal Medicine
PROC: 0F9030Z Drainage of Liver with Drainage Device, Percutaneous Approach (ICD-10-PCS; principal; 2024-07-16)
PROC: 0F20X0Z Change Drainage Device in Liver, External Approach (ICD-10-PCS; 2024-07-30)
DX: A41.9 Sepsis, unspecified organism (principal); K75.0 Abscess of liver; E43 Unspecified severe protein-calorie malnutrition; Z20.822 Contact with and (suspected) exposure to COVID-19; E86.0 Dehydration; E87.1 Hypo-osmolality and hyponatremia; D64.9 Anemia, unspecified; Z68.1 Body mass index [BMI] 19.9 or less, adult; B95.4 Other streptococcus as the cause of diseases classified elsewhere; F17.210 Nicotine dependence, cigarettes, uncomplicated
CPT/HCPCS: 36245; 47011; 71045; 72156; 74176; 74183; 75984; 76000; 76700; 80048; 80053; 80307; 81001; 82105; 82550; 82962; 83605; 83735; 83880; 84100; 84484; 85025; 85610; 85730; 86753; 86850; 86900; 86901; 87015; 87040; 87070; 87101; 87177; 87186; 87205; 87206; 87804; 88108; 88305; 88312; 93005; 97110; 97116; 97161; 97530; 99285; G0378; G0480; J0131; J0295; J1200; J1644; J1956; J2250; J2270; J2543; J2997; J3010; J3490; J7030; J7050; Q9967; 36415-L1; 36415-TC

== ENCOUNTER → 2024-08-17 | Emergency (ER) | payer OTHER ==
[~2024-08-17] MED LIST: AMOX-457 PO; LEVO750T68 PO
== END | disposition still patient (30) ==
LOC: EMS 10:56
DX: Z53.21 Procedure and treatment not carried out due to patient leaving prior to being seen by health care provider (principal)